=== PATIENT | female | born 1990 | race Caucasian/White ===

== ENCOUNTER 2018-07-23 18:19 | Outpatient (CLI) | payer MEDICAID ==
[2018-07-23 19:39] LABS: ADD MAN DIFF? NO
[2018-07-23 19:40] LABS: WHITE BLOOD COUNT 11.4 10^3/ul (4.8-10.8)
[2018-07-23 19:40] LABS: BASOPHILS % 0.3 % (0.0-2.0); EOSINOPHILS # 0.2 10^3/ul (0.0-0.5); EOSINOPHILS % 2.1 % (0.0-7.0); HEMATOCRIT 36.5 % (37.0-47.0); LYMPHOCYTES # 2.4 10^3/ul (0.8-2.9); LYMPHOCYTES % 21.3 % (15.0-51.0); MEAN CORPUSCULAR HEMOGLOBIN 28.4 pg (29.0-33.0); MEAN CORPUSCULAR HGB CONC 32.9 g/dl (32.0-37.0); MEAN CORPUSCULAR VOLUME 86.5 fl (82.0-101.0); MEAN PLATELET VOLUME 9.4 fl (7.4-10.4); MONOCYTE # 0.8 10^3/ul (0.3-0.9); MONOCYTES % 7.1 % (0.0-11.0); NEUTROPHIL # 7.8 10^3/ul (1.6-7.5); NEUTROPHILS % 68.4 % (39.0-77.0); PLATELET COUNT 414 10^3/UL (140-415); RED BLOOD COUNT 4.22 10^6/ul (4.20-5.40)
[2018-07-23] MEDS: LACTATED RINGER'S 1,000 ML IV ×2 (19:45→22:10)
[2018-07-23 20:00] LABS: INR 0.87; PROTIME 11.9 Sec (11.9-14.9); PT RATIO 0.9
[2018-07-23 20:01] LABS: PARTIAL THROMBOPLASTIN TIME 26.1 Sec (23.0-35.0)
[2018-07-23 20:35] LABS: HEPATITIS B SURFACE ANTIGEN NEGATIVE (NEGATIVE)
[2018-07-24 15:09] LABS: RAPID PLASMA REAGIN NONREACTIVE (NR)
== END 2018-07-24 01:00 | disposition home or self-care (01) ==
LOC: OBT 18:19 → L-D 18:21
DX: O62.9 Abnormality of forces of labor, unspecified (principal); Z3A.38 38 weeks gestation of pregnancy
CPT/HCPCS: 36415; 85025; 85610; 85730; 86592; 86850; 86900; 86901; 87340; 96360; 96361

== ENCOUNTER 2018-07-31 07:46 | Inpatient (IN) | payer MEDICAID ==
[~2018-07-31 07:46] MED LIST: OXYTOCIN 30 UNITS/LR 500 ML BAG IV
[2018-07-31] MEDS ORDERED: CEFAZOLIN 2 GM/50 ML (PMX) 50 ML IVPB (08:30)
[2018-07-31] MEDS ORDERED: OXYTOCIN 30 UNITS/LR 500 ML IV ×2 (08:30→18:00)
[2018-07-31] MEDS ORDERED: MISOPROSTOL 200 MCG TAB PR ×2 (08:30→18:00)
[2018-07-31] MEDS ORDERED: CARBOPROST 250 MCG INJ IM ×2 (08:30→18:00)
[2018-07-31] MEDS ORDERED: METHYLERGONOVINE 0.2 MG INJ IM ×2 (08:30→18:00)
[2018-07-31 09:15] LABS: ADD MAN DIFF? NO
[2018-07-31 09:19] LABS: BASOPHILS % 0.2 % (0.0-2.0); EOSINOPHILS # 0.5 10^3/ul (0.0-0.5); EOSINOPHILS % 3.7 % (0.0-7.0); HEMATOCRIT 34.1 % (37.0-47.0); HEMOGLOBIN 11.4 g/dl (12.0-16.0); LYMPHOCYTES # 2.6 10^3/ul (0.8-2.9); LYMPHOCYTES % 19.6 % (15.0-51.0); MEAN CORPUSCULAR HEMOGLOBIN 28.9 pg (29.0-33.0); MEAN CORPUSCULAR HGB CONC 33.4 g/dl (32.0-37.0); MEAN CORPUSCULAR VOLUME 86.3 fl (82.0-101.0); MEAN PLATELET VOLUME 9.5 fl (7.4-10.4); MONOCYTE # 1.1 10^3/ul (0.3-0.9); MONOCYTES % 8.1 % (0.0-11.0); NEUTROPHIL # 8.9 10^3/ul (1.6-7.5); NEUTROPHILS % 67.7 % (39.0-77.0); PLATELET COUNT 390 10^3/UL (140-415); RED BLOOD COUNT 3.95 10^6/ul (4.20-5.40)
[2018-07-31 09:19] LABS: WHITE BLOOD COUNT 13.1 10^3/ul (4.8-10.8)
[2018-07-31 09:38] LABS: INR 0.89; PROTIME 12.2 Sec (11.9-14.9)
[2018-07-31 09:39] LABS: PARTIAL THROMBOPLASTIN TIME 27.7 Sec (23.0-35.0)
[2018-07-31] MEDS: LACTATED RINGER'S 1,000 ML IV (10:28)
[2018-07-31] MEDS ORDERED: PHENYLephrine (100 MCG/ML) 10ML SYG (12:16)
[2018-07-31] MEDS ORDERED: OXYTOCIN 10 UNIT INJ (12:17)
[2018-07-31] MEDS ORDERED: ONDANSETRON 4 MG INJ (12:17)
[2018-07-31] MEDS ORDERED: morphine SULFATE/PF (10 MG/10 ML) INJ (12:17)
[2018-07-31] MEDS ORDERED: DIPHENHYDRAMINE 50 MG INJ (13:56)
[2018-07-31] MEDS ORDERED: morphine 2 MG INJ IV (14:30)
[2018-07-31] MEDS ORDERED: ONDANSETRON 4 MG INJ IV (14:30)
[2018-07-31] MEDS ORDERED: NALOXONE (0.4 MG/ML) INJ IV (14:30)
[2018-07-31] MEDS: OXYTOCIN 30 UNITS/LR 500 ML IV ×2 (14:46→18:23)
[2018-07-31 15:10] LABS: RAPID PLASMA REAGIN NONREACTIVE (NR)
[2018-07-31] MEDS ORDERED: METHYLERGONOVINE 0.2 MG TAB PO (18:00)
[2018-07-31 18:28] LABS: HEPATITIS B SURFACE ANTIGEN NEGATIVE (NEGATIVE)
[2018-07-31 18:45] LABS: HEPATITIS C VIRAL ANTIBODY NEGATIVE (NEGATIVE); HIV 1&2 ANTIBODY NEGATIVE (NEGATIVE)
[2018-07-31] MEDS: IBUPROFEN 800 MG TAB PO (21:17)
[2018-07-31] MEDS: SENNA/DOCUSATE NA (8.6MG/50MG) TAB PO (21:17)
[2018-07-31] MEDS: DEXTROSE 5%-LR 1,000 ML IV (22:02)
[2018-08-01] MEDS: DIPHENHYDRAMINE 50 MG INJ IV ×2 (00:22→09:09)
[2018-08-01] MEDS: DEXTROSE 5%-LR 1,000 ML IV ×3 (06:02→17:52)
[2018-08-01] MEDS: IBUPROFEN 800 MG TAB PO ×3 (06:02→21:27)
[2018-08-01 08:25] LABS: ADD MAN DIFF? NO
[2018-08-01 08:37] LABS: WHITE BLOOD COUNT 12.2 10^3/ul (4.8-10.8)
[2018-08-01 08:37] LABS: BASOPHILS % 0.2 % (0.0-2.0); EOSINOPHILS # 0.3 10^3/ul (0.0-0.5); EOSINOPHILS % 2.7 % (0.0-7.0); HEMATOCRIT 34.4 % (37.0-47.0); HEMOGLOBIN 11.4 g/dl (12.0-16.0); LYMPHOCYTES # 2.2 10^3/ul (0.8-2.9); LYMPHOCYTES % 18.1 % (15.0-51.0); MEAN CORPUSCULAR HEMOGLOBIN 28.7 pg (29.0-33.0); MEAN CORPUSCULAR HGB CONC 33.1 g/dl (32.0-37.0); MEAN CORPUSCULAR VOLUME 86.6 fl (82.0-101.0); MEAN PLATELET VOLUME 9.9 fl (7.4-10.4); MONOCYTE # 1.1 10^3/ul (0.3-0.9); MONOCYTES % 8.8 % (0.0-11.0); NEUTROPHIL # 8.5 10^3/ul (1.6-7.5); NEUTROPHILS % 69.5 % (39.0-77.0); PLATELET COUNT 374 10^3/UL (140-415); RED BLOOD COUNT 3.97 10^6/ul (4.20-5.40); RED CELL DISTRIBUTION WIDTH 13.1 % (11.5-14.5)
[2018-08-01] MEDS ORDERED: HYDROCODONE/APAP (5/325) TAB NGT (11:00)
[2018-08-01] MEDS: KETOROLAC 30 MG INJ IV (11:34)
[2018-08-01] MEDS: SENNA/DOCUSATE NA (8.6MG/50MG) TAB PO ×2 (14:56→21:27)
[2018-08-01] MEDS: HYDROCODONE/APAP (5/325) TAB GTB ×2 (14:56→21:27)
[2018-08-01] MEDS: DIPHTH/TET/ACEL PERTUSS (ADULT) 0.5 ML VIAL IM* (14:58)
[2018-08-02] MEDS: IBUPROFEN 800 MG TAB PO ×3 (05:48→21:33)
[2018-08-02] MEDS: HYDROCODONE/APAP (5/325) TAB GTB ×3 (05:48→21:33)
[2018-08-02] MEDS: SENNA/DOCUSATE NA (8.6MG/50MG) TAB PO ×2 (09:04→20:36)
[2018-08-03] MEDS: HYDROCODONE/APAP (5/325) TAB GTB ×2 (05:40→10:46)
[2018-08-03] MEDS: IBUPROFEN 800 MG TAB PO (05:40)
[2018-08-03] MEDS: MEASLES,MUMPS,RUBELLA VACCINE INJ SC* (09:00)
[2018-08-03] MEDS ORDERED: DIPHTH/TET/ACEL PERTUSS (ADULT) 0.5 ML VIAL IM* (09:00)
[2018-08-03] MEDS: SENNA/DOCUSATE NA (8.6MG/50MG) TAB PO (10:39)
[2018-08-03] MEDS: LANOLIN HPA 1 PKT TOP (10:40)
== END 2018-08-03 14:10 | disposition home or self-care (01) | DRG 785 ==
LOC: OBT 07:46 → L-D 07:50 → OBT 08:15 → L-D 08:15 → PP1 18:04
PROVIDERS: Obstetrics & Gynecology
PROC: 10D00Z1 Extraction of Products of Conception, Low, Open Approach (ICD-10-PCS; principal; 2018-08-01)
PROC: 0UB70ZZ Excision of Bilateral Fallopian Tubes, Open Approach (ICD-10-PCS; 2018-08-01)
PROC: 0UB60ZZ Excision of Left Fallopian Tube, Open Approach (ICD-10-PCS; 2018-08-01)
PROC: 0DNU0ZZ Release Omentum, Open Approach (ICD-10-PCS; 2018-08-01)
DX: O34.219 Maternal care for unspecified type scar from previous cesarean delivery (principal); O75.89 Other specified complications of labor and delivery; N83.8 Other noninflammatory disorders of ovary, fallopian tube and broad ligament; O99.62 Diseases of the digestive system complicating childbirth; K66.0 Peritoneal adhesions (postprocedural) (postinfection); Z3A.39 39 weeks gestation of pregnancy; Z37.0 Single live birth; Z30.2 Encounter for sterilization
CPT/HCPCS: 85025; 85610; 85730; 86592; 86703; 86803; 86850; 86900; 86901; 87340; 88302; 88304; 90686; 90715; 99464